=== PATIENT | female | born 1955 | race Caucasian/White ===

== ENCOUNTER 2016-11-01 10:30 | Outpatient (CLI) | payer BC, OTHER ==
[2016-11-01 11:12] LABS: #Basophils 0.1 thou/uL (0.0-0.2); #Eosinphils 0.1 thou/uL (0.0-0.7); #Lymphocytes 2.6 thou/uL (1.20-3.40); #Monocytes 0.5 thou/uL (0.11-0.59); #Neutrophils 5.8 thou/uL (1.40-6.50); %Basophils 1.6 % (0.0-1.0); %Eosinophils 1.1 % (0.0-10.0); %Monocytes 5.9 % (0.0-10.0); %Neutrophils 63.5 % (42.0-75.0); Hemoglobin 14.7 g/dL (12.0-16.0); Mean Corpuscular HGB CONC 33.1 g/dL (32.0-36.0); Mean Corpuscular Hemoglobin 30.1 pg (27.0-31.0); Mean Platelet Volume 8.2 fL (7.4-10.4); Platelet Count 341 thou/uL (130-400); RBC Distribution Width 12.8 % (11.5-14.5); Red Blood Cell (RBC) Count 4.88 mill/uL (4.20-5.40); White Blood Cell (WBC) Count 9.2 thou/uL (4.8-10.8)
[2016-11-01 11:34] LABS: Hemoglobin A1c 4.8 % (4.0-6.0)
[2016-11-01 11:40] LABS: ALT (SGPT) 22 U/L (0-55); AST (SGOT) 16 U/L (5-34); Alkaline Phosphatase 80 U/L (40-150); Anion Gap 14 mmol/L (10-20); BUN (Urea Nitrogen) 18 mg/dL (9.8-20.1); Bilirubin, Total 0.5 mg/dL (0.2-1.2); Calc. Creatinine Clearance 0 mL/min (70-130); Calcium 9.4 mg/dL (7.8-10.44); Carbon Dioxide 25 mmol/L (22-29); Cardiac Risk 4.6 (Less than 4.5); Chloride 106 mmol/L (98-107); Cholesterol 229 mg/dL (< 200 Desired); Estimated GFR-MDRD 85; Globulin 2.6 g/dL (2.4-3.5); Glucose 97 mg/dL (70-105); HDL Cholesterol 50 mg/dL (>60 Neg Risk); LDL Cholesterol, Calculated 150 mg/dL; Potassium 4.3 mmol/L (3.5-5.1); Protein, Total 6.6 g/dL (6.0-8.3); Sodium 141 mmol/L (136-145); Triglycerides 147 mg/dL (Less than 150)
[2016-11-01 13:06] LABS: Free T4 (Free Thyroxine) 0.96 ng/dL (0.70-1.48); Thyroid Stimulating Hormone 1.2309 uIU/mL (0.35-4.94); Vitamin D, 25 Hydroxy 22.7 ng/mL (> 30.0)
== END 2016-11-01 10:31 ==
LOC: MADLABBHPM 10:30
PROVIDERS: ATTEND Family Medicine
DX: F41.8 Other specified anxiety disorders (principal); M79.7 Fibromyalgia; R53.83 Other fatigue
CPT/HCPCS: 36415; 80053; 80061; 82306; 83036; 84439; 84443; 85025

== ENCOUNTER 2017-02-01 09:34 | Emergency (ER) | payer OTHER ==
[2017-02-01 10:02] LABS: #Basophils 0.1 thou/uL (0.0-0.2); #Eosinphils 0.2 thou/uL (0.0-0.7); #Lymphocytes 2.6 thou/uL (1.20-3.40); #Monocytes 0.5 thou/uL (0.11-0.59); #Neutrophils 5.3 thou/uL (1.40-6.50); %Basophils 1.1 % (0.0-1.0); %Eosinophils 1.8 % (0.0-10.0); %Lymphocytes 29.5 % (21.0-51.0); %Monocytes 6.1 % (0.0-10.0); %Neutrophils 61.5 % (42.0-75.0); Hemoglobin 14.8 g/dL (12.0-16.0); Mean Corpuscular HGB CONC 33.5 g/dL (32.0-36.0); Mean Corpuscular Hemoglobin 30.7 pg (27.0-31.0); Mean Corpuscular Volume 91.7 fl (81.0-99.0); Mean Platelet Volume 8.7 fL (7.4-10.4); Platelet Count 312 thou/uL (130-400); RBC Distribution Width 12.7 % (11.5-14.5); Red Blood Cell (RBC) Count 4.83 mill/uL (4.20-5.40); White Blood Cell (WBC) Count 8.7 thou/uL (4.8-10.8)
[2017-02-01 10:14] LABS: D-Dimer Test Less than 0.27 *mcg/mL (0.27-0.43)
[2017-02-01 10:17] LABS: INR-International Normal Ratio 0.9; PTT 28.6 SEC (22.9-36.1); Prothrombin Time 12.9 SEC (12.0-14.7)
[2017-02-01 10:19] LABS: ALT (SGPT) 21 U/L (8-55); AST (SGOT) 16 U/L (5-34); Albumin 3.7 g/dL (3.5-5.0); Alkaline Phosphatase 80 U/L (40-150); Anion Gap 13 mmol/L (10-20); BUN (Urea Nitrogen) 16 mg/dL (9.8-20.1); Bilirubin, Total 0.6 mg/dL (0.2-1.2); Calc. Creatinine Clearance 0 mL/min (70-130); Calcium 8.8 mg/dL (7.8-10.44); Carbon Dioxide 24 mmol/L (22-29); Chloride 109 mmol/L (98-107); Estimated GFR-MDRD 84; Globulin 2.9 g/dL (2.4-3.5); Glucose 105 mg/dL (70-105); Potassium 3.8 mmol/L (3.5-5.1); Protein, Total 6.6 g/dL (6.0-8.3); Sodium 142 mmol/L (136-145)
[2017-02-01 10:28] LABS: CKMB 0.7 ng/mL (0-6.6); Troponin I Less than 0.010 ng/mL (< 0.028)
--- NOTE | 2017-02-01 10:37 | CT ---
HEAD CT WITHOUT CONTRAST: Date: 02-01-17 Comparison: 07-22-14 History: Stroke protocol, altered mental status, right sided facial weakness and droop with right ar m weakness. Technique: Serial axial CT imaging obtained at 5 mm intervals from vertex through skull base without contrast. FINDINGS: The imaged paranasal sinuses/mastoid air cells are well aerated. There is no displace calvarial frac ture. No intracranial hemorrhage, midline shift, mass effect, or ventricular enlargement noted. IMPRESSION: No intracranial hemorrhage. Results called to Dr. Tolliver at 10:08 a.m. 02-01-17. Code CR POS: MORALES
== END 2017-02-01 12:00 | disposition short-term general hospital (02) ==
LOC: MADERS 09:34
DX: R29.810 Facial weakness (principal); R29.818 Other symptoms and signs involving the nervous system; E66.9 Obesity, unspecified; Z79.899 Other long term (current) drug therapy
CPT/HCPCS: 36416; 70450; 80053; 82553; 84484; 85025; 85379; 85610; 85730; 93005

== ENCOUNTER 2020-07-08 19:15 | Emergency (ER) | payer OTHER ==
[2020-07-10 11:25] LABS: SARS-CoV-2 MS2 Positive; SARS-CoV-2 N Gene Negative; SARS-CoV-2 S Gene Negative; SARS-CoV-2 by NAA Not Detected (NotDetected); SARS-CoV-2 orf1ab Negative
== END 2020-07-08 20:25 | disposition home or self-care (01) ==
LOC: MADERS 19:15
DX: Z20.828 Contact with and (suspected) exposure to other viral communicable diseases (principal); Z87.891 Personal history of nicotine dependence
CPT/HCPCS: 87635; 99283; U0003

== ENCOUNTER 2020-11-03 22:08 | Emergency (ER) | payer OTHER ==
[2020-11-03 22:53] LABS: Bilirubin Moderate (Negative); Blood, Urine Large (Negative); Clarity Cloudy (Clear); Glucose, Urine (Dipstick) Negative (Negative); Ketone, Urine Trace mg/dL (Negative); Leukocyte Large (Negative); Nitrite Positive (Negative); Protein, Urine (Dipstick) > or equal to 300 mg/dL (Neg-Trace); Specific Gravity, Urine 1.025 (1.005-1.030); pH, Urine 5.5 (5.0-9.0)
[2020-11-03 23:00] LABS: Bacteria/HPF 1+ HPF (None Seen); Mucous/LPF Rare LPF (<2+); RBC/HPF Greater than 50 HPF (0-3)
[2020-11-03] MEDS ORDERED: Lidocaine 1% 20 ML MDV ONE (23:15)
[2020-11-03] MEDS ORDERED: Nitrofurantoin Monohyd/M-Cryst 100 MG CAP ONE (23:15)
[2020-11-03] MEDS ORDERED: cefTRIAXone\\ROCEPHIN 1 GM VIAL ONE (23:15)
== END 2020-11-03 23:36 | disposition home or self-care (01) ==
LOC: MADERS 22:08
DX: N30.01 Acute cystitis with hematuria (principal); Z87.891 Personal history of nicotine dependence; Z79.899 Other long term (current) drug therapy
CPT/HCPCS: 81003; 81015; 87077; 87086; 87186; 96372; 99283; J0696

== ENCOUNTER 2021-07-11 08:41 | Outpatient (CLI) | payer MEDICARE | END 2021-07-11 08:42 | disposition home or self-care (01) | LOC: MADLAB 08:41 | PROVIDERS: ATTEND Family Medicine | DX: M17.0 Bilateral primary osteoarthritis of knee (principal) | CPT/HCPCS: 73565 ==

== ENCOUNTER 2025-07-20 17:42 | Emergency (ER) | payer OTHER | END 2025-07-20 18:09 | disposition home or self-care (01) | LOC: MADERS 17:42 | DX: S00.411A Abrasion of right ear, initial encounter (principal); I10 Essential (primary) hypertension; X58.XXXA Exposure to other specified factors, initial encounter; Z87.891 Personal history of nicotine dependence | CPT/HCPCS: 99282 ==